=== PATIENT | female | born 1980 | race Two or more races ===

== ENCOUNTER 2016-11-17 14:02 | Emergency (ER) | payer OTHER ==
[2016-11-17 14:11] VITALS: BP 109/69; PULSE 84; TEMP 98.7; BMI 22.6
--- NOTE | 2016-11-17 15:12 | PDOC ---
History of Present Illness - General History Source: Patient Exam Limitations: No Limitations - History of Present Illness Initial Comments: 11/17/16 18:47 Patient is a 36 year old female with a significant past medical history of kidney stones, ovarian cyst and anemia who presents to the ED with abnormal lab findings sent by PCP. Patient has blood work yesterday that revealed Hgb 5.9 and Hct 21.4 and patient was contacted to present to the ED. Patient states that she has had vaginal bleeding for 20 days and was evaluated by SPECIAL NEEDS TEACHER Dr. Mott for the first time 3 weeks ago and had a biopsy done. Patient had a follow up appointment this Tuesday with Dr. Mott and reports negative biopsy result. Patient was supposed to have a US this Tuesday, but did not make it to her appointment. She states that she was bleeding through 6-7 pads, patient states that her last episode of bleeding was on Tuesday and was not a lot of blood as before. Currently no bleeding or abd pain. She reports fatigue and SOB while walking up the stairs. Patient reports regular periods normally and this is the first time she is experiencing the following symptoms. She states that she does not want a blood transfusion and has not had one in the past. Patient has a sx scheduled for 2016 but is unsure of the name of the surgery. She denies any cp, abdominal pain, cramping, diarrhea, ightheadedness or palpitations. Patient denies any dysuria. She denies any control use. PCP - Dr. Kev Eddy brake repairer hydraulic - Dr. Mott <Zonia Her - Last Filed: 11/17/16 18:47> <Lino Parisi - Last Filed: 11/19/16 16:13> - General Chief Complaint: Lightheaded Stated Complaint: Revisit, Lab Variance Time Seen by Provider: 11/17/16 14:33 Past History <Zonia Her - Last Filed: 11/17/16 18:47> - Past Medical History Anemia: Yes - Psycho/Social/Smoking Cessation Hx Anxiety: No Suicidal Ideation: No Smoking History: Never smoked Have you smoked in the past 12 months: No Hx Alcohol Use: No Drug/Substance Use Hx: No Substance Use Type: None <Lino Parisi - Last Filed: 11/19/16 16:13> - Past Medical History Allergies/Adverse Reactions: Allergies Allergy/AdvReac Type Severity Reaction Status Date / Time No Known Allergies Allergy Verified 11/17/16 14:10 Home Medications: Ambulatory Orders Ferrous Sulfate 325 mg PO BID #30 tablet 11/17/16 NK [No Known Home Medication] 11/17/16 Review of Systems - Review of Systems Able to Perform ROS?: Yes Comments:: 11/17/16 18:47 CONSTITUTIONAL: Reported: fatigue No reported: Fever, Chills, Diaphoresis, Generalized Weakness, Malaise, Loss of Appetite HEENT: No reported: Rhinorrhea, Nasal Congestion, Throat Pain, Throat Swelling, Difficulty Swallowing, Mouth Swelling, Ear Pain, Eye Pain, Visual Changes CARDIOVASCULAR: No reported: Chest Pain, Syncope, Palpitations, Irregular Heart Rate, Lightheadedness, Peripheral Edema RESPIRATORY: No reported: Cough, Shortness of Breath, SOB with Exertion, Orthopnea, Wheezing , Stridor, Hemoptysis GASTROINTESTINAL: No reported: Abdominal pain, Abdominal Distension, Nausea, Vomiting, Diarrhea, Constipation, Melena, Hematochezia GENITOURINARY: Reported; vaginal bleeding No reported: Dysuria, Frequency, Urgency, Hesitancy, Flank Pain, Genital Pain MUSCULOSKELETAL: No reported: Myalgia, Arthralgia, Joint Swelling, Back pain, Neck Pain SKIN: No reported: Rash, Itching, Pallor HEMEATOLOGIC/IMMUNOLOGIC: No reported: Easy Bleeding, Easy Bruising, Lymphadenopathy, Frequent infections ENDOCRINE: No reported: Unexplained Weight Gain, Unexplained Weight Loss, Heat Intolerance , Cold Intolerance NEUROLOGIC: No reported: Headache, Focal Weakness, Paresthesias, Vertigo, Lightheadedness, Unsteady Gait, Seizure, Mental Status Changes, Incontinence PSYCHIATRIC: No reported: Anxiety, Depression <Zonia Her - Last Filed: 11/17/16 18:47> *Physical Exam - Vital Signs Last Vital Signs Temp Pulse Resp BP Pulse Ox 98.7 F 84 18 109/69 100 11/17/16 14:04 11/17/16 14:04 11/17/16 14:04 11/17/16 14:04 11/17/16 14:04 - Physical Exam Comments: 11/17/16 18:47 GENERAL: The patient is awake, alert, and fully oriented, Nontoxic - in no acute distress. HEAD: Normocephalic, atraumatic. EYES:(+) pale conjunctiva. extraocular movements intact, sclera anicteric. ENT: Normal voice, Moist mucous membranes. NECK: Normal range of motion, supple LUNGS: Breath sounds equal, clear to auscultation bilaterally. No wheezes, no rhonchi, no rales. HEART: Regular rate and rhythm, without murmur, rub or gallop. ABDOMEN: Soft, nontender, normoactive bowel sounds. No guarding, no rebound.No CVA tenderness EXTREMITIES: Normal range of motion, no edema. No clubbing or cyanosis. No cords , erythema, or tenderness. NEUROLOGICAL: No facial assymetry, Normal speech, PSYCH: Normal mood, normal affect. SKIN: Warm, Dry, normal turgor, <Zonia Her - Last Filed: 11/17/16 18:47> - Vital Signs Last Vital Signs Temp Pulse Resp BP Pulse Ox 98.7 F 84 18 109/69 100 11/17/16 14:04 11/17/16 14:04 11/17/16 14:04 11/17/16 14:04 11/17/16 14:04 <Lino Parisi - Last Filed: 11/19/16 16:13> ED Treatment Course - LABORATORY CBC & Chemistry Diagram: 11/17/16 15:00 11/17/16 15:00 - ADDITIONAL ORDERS Additional order review: Laboratory Results 11/17/16 11/17/16 11/17/16 15:00 15:00 15:00 INR 1.05 Sodium 140 Potassium 4.2 Chloride 105 Carbon Dioxide 28 Anion Gap 7 L BUN 7 D Creatinine 0.6 Creat Clearance w eGFR > 60 Random Glucose 83 Calcium 8.6 Total Bilirubin 0.4 AST 16 D ALT 12 D Alkaline Phosphatase 38 L Total Protein 7.7 Albumin 3.9 Blood Type O POSITIVE Antibody Screen Negative 11/17/16 15:00 RBC 3.18 L D MCV 66.0 L D MCHC 29.4 L RDW 23.4 H D MPV 9.3 D Neutrophils % 59.5 Lymphocytes % 24.8 Monocytes % 7.1 Eosinophils % 6.6 H Basophils % 2.0 <Zonia Her - Last Filed: 11/17/16 18:47> - LABORATORY CBC & Chemistry Diagram: 11/17/16 15:00 11/17/16 15:00 <Lino Parisi - Last Filed: 11/19/16 16:13> Medical Decision Making - Medical Decision Making 11/17/16 15:23 36y F no pmhx presents with anemia - the pt has been having increased vag bleeding this past month, was evaluted by tanker service attendant (Dr. Mott) s/p biopsy 3 weeks ago with 'normal results' per pt. SHe is no longer bleeding, but was sent to the ED due to a HGB of 5.9 as an outpaitnet. the pt messi any pain, but does endorse some exertional dyspnea when going up stairs. Pt has pale conjunctiva but otherwise unremakble exam will repeat labs will obtain pelvic US will d/w Glaucoma Specialist pt declines blood transfusion 11/17/16 19:24 labs reviewed anemia noted to 6.2 pt refuses tarnsfusion, woul dprefer something less invasive agree as pt is only slightly symptmoatic, has few comorbidities. I feel that iron supplementation is a reasonable approach as she is no longer actively bleeding and has outpatient follow up for definitive management of her source of bleeding/anemia. will give pt PO iron awaiting US results Case dw dr. Mott. agree with iron will fu with patient as outpatient 11/17/16 20:17 US noted for fibroid uterus will dc th pt with outpatient management and PO iron return precautiosn ewre discussed I discussed the physical exam findings, ancillary test results and final diagnoses with the patient. I answered all of the patient's questions. The patient was satisfied with the care received and felt comfortable with the discharge plan and treatment plan. The patient will call their primary care physician within 24 hours to arrange follow-up and will return to the Emergency Department with any new, persistent or worsening symptoms. <Lino Parisi - Last Filed: 11/19/16 16:13> *DC/Admit/Observation/Transfer - Attestations Scribe Attestion: 11/17/16 18:47 Documentation prepared by CECY Khalil, acting as medical sales for Lino Parisi MD. <Zonia Her - Last Filed: 11/17/16 18:47> - Discharge Dispostion Admit: No <Lino Parisi - Last Filed: 11/19/16 16:13> Diagnosis at time of Disposition: Dysfunctional uterine bleeding Anemia Qualifiers: Anemia type: unspecified type Qualified Code(s): D64.9 - Anemia, unspecified - Discharge Dispostion Disposition: HOME Condition at time of disposition: Improved - Prescriptions Prescriptions: Ferrous Sulfate 325 mg PO BID #30 tablet - Referrals Referrals: Kev Eddy PA [Primary Care Provider] - Melissa Mott MD [Staff Physician] - - Patient Instructions Printed Discharge Instructions: DI for Vaginal Bleeding Additional Instructions: Vuelva al departamento de urgencias de inmediato con cualquier nuevo, persistente o empeorando los sntomas incluyendo falta de aliento, dolor en el pecho, mareos, vmitos, dolor abdominal, sangrado vaginal darrell u otras preocupaciones. [facility] el michael segn lo prescrito. DEBE llamar y hacer el seguimiento con el Dr. Mott o con lund mdico de atencin primaria dentro de los 3 a 4 mcclellan para jacklyn evaluacin ms detallada de missy sntomas. Los resultados fueron discutidos con usted. Por favor, asegrese de que lund mdico revise los resultados de lund evaluacin de emergencia. Return to the emergency department immediately with ANY new, persistent or worsening symptoms including shortness of breath, chest pain, dizziness, vomiting, abdominal pain, severe vaginal bleeding or other concerns. Take the iron as prescribed. You MUST call and follow up with Dr. Mott or your primary care doctor within 3-4 days for further evaluation of your symptoms. Results were discussed with you. Please make sure your doctor reviews the results of your emergency evaluation. Print Language: GUYANESE
[2016-11-17 15:57] LABS: EOSINOPHIL 6.6 % (0-4.5); MCHC 29.4 g/dl (32.0-36.0); MEAN PLT VOLUME 9.3 fl (7.5-11.1); NEUTROPHILS 59.5 % (42.8-82.8); PLATELET COUNT 323 K/MM3 (134-434); RDW 23.4 % (11.6-15.6); WHITE BLOOD COUNT 7.5 K/mm3 (4.0-10.0)
[2016-11-17 16:21] LABS: ALBUMIN 3.9 g/dl (3.4-5.0); ANION GAP 7 (8-16); CALCIUM 8.6 mg/dL (8.5-10.1); CO2 28 mmol/L (21-32); CREATININE 0.6 mg/dL (0.55-1.02); GLUCOSE,RANDOM 83 mg/dL (74-106); SGOT/AST 16 U/L (15-37); SGPT/ALT 12 U/L (12-78)
[2016-11-17 16:22] LABS: ALK PHOS 38 U/L (45-117); BILIRUBIN,TOTAL 0.4 mg/dL (0.2-1.0); TOT PROT 7.7 g/dl (6.4-8.2)
[2016-11-17 16:24] LABS: INR 1.05 (0.82-1.09); PROTHROMBIN TIME (PATIENT) 11.6 SEC (9.98-11.88)
[2016-11-17 16:44] LABS: MCH 19.4 pg (25.7-33.7)
[2016-11-17 18:13] LABS: ANISOCYTOSIS 3+; HYPOCHROMIA 3+; MICROCYTOSIS 1+; OVALOCYTE 1+; PLATELET ESTIMATE ADEQUATE (NORMAL); SCHISTOCYTES 2+
[2016-11-17] MEDS ORDERED: FERROUS SO4 325 MG TABLET (FP) PO ONE (19:35)
[2016-11-17] MEDS ORDERED: FERROUS SO4 325 MG TABLET (FP) ONE (20:25)
--- NOTE | 2016-11-21 21:51 | EKG ---
Test Reason : Blood Pressure : / mmHG Vent. Rate : 069 BPM Atrial Rate : 069 BPM P-R Int : 134 ms QRS Dur : 086 ms QT Int : 372 ms P-R-T Axes : -10 076 046 degrees QTc Int : 398 ms NORMAL SINUS RHYTHM NONSPECIFIC ST ABNORMALITY NO PREVIOUS ECGS AVAILABLE Confirmed by SONIYA SABILLON MD ([id number]) on 11/21/2016 9:51:19 PM Referred By: Confirmed By:SONIYA SABILLON MD
== END 2016-11-17 21:44 | disposition home or self-care (01) ==
LOC: JER 14:02
DX: N93.8 Other specified abnormal uterine and vaginal bleeding (principal); D25.9 Leiomyoma of uterus, unspecified
CPT/HCPCS: 76830-TC; 80053; 85025; 85610; 86850; 86900; 86901; 93005; 93010; 99283-25

== ENCOUNTER 2019-10-12 20:07 | Emergency (ER) | payer OTHER ==
[2019-10-12 20:21] VITALS: BP 136/85; PULSE 116; TEMP 98.9; BMI 24.3
--- NOTE | 2019-10-12 20:25 | PDOC ---
History of Present Illness - General Chief Complaint: Sore Throat Stated Complaint: FEVER/HEADACHE Time Seen by Provider: 10/12/19 20:17 History Source: Patient Exam Limitations: No Limitations - History of Present Illness Initial Comments: 10/12/19 20:21 HISTORY OF PRESENT ILLNESS: 39-year-old woman presents emergency department for evaluation of sore throat over the past 2 days. Patient denies any fevers, voice changes, difficulty swallowing. No recent travel or sick contacts. PAST MEDICAL HISTORY: Denies past medical history SURGICAL HISTORY: Denies ALLERGIES: No known drug allergies REVIEW OF SYSTEMS General/Constitutional: Denies fever or chills. Denies weakness, weight change. HEENT: See HPI Cardiovascular: Denies chest pain or shortness of breath. Respiratory: Denies cough, wheezing, or hemoptysis. Gastrointestinal: Denies nausea, vomiting, diarrhea or constipation. Denies rectal bleeding. Genitourinary: Denies dysuria, frequency, or change in urination. Musculoskeletal: Denies joint or muscle swelling or pain. Denies neck or back pain. Skin and breasts: Denies rash or easy bruising. Neurologic: Denies headache, vertigo, loss of consciousness, or loss of sensation. Psychiatric: Denies depression or anxiety. Endocrine: Denies increased thirst. Denies abnormal weight change. Hematologic/Lymphatic: Denies anemia, easy bleeding, or history of blood clots. Allergic/Immunologic: Denies hives or skin allergy. Denies latex allergy. PHYSICAL EXAM General Appearance: Well-appearing, appropriately dressed. No apparent distress, no intoxication. HEENT: EOMI, PERRLA, normal ENT inspection, normal voice, TMs normal. No conjunctival pallor. No photophobia, scleral icterus. Oropharynx mildly erythematous with exudate present to bilateral tonsils. Uvula is midline. No evidence of peritonsillar abscess present. Neck: Supple. Trachea midline. No tenderness, rigidity, carotid bruit, stridor or thyromegaly. Tender anterior cervical lymphadenopathy is present. Respiratory/Chest: Lungs CTAB. No shortness of breath, chest tenderness, respiratory distress, accessory muscle use. No crackles, rales, rhonchi, stridor, wheezing, dullness Neurologic: health outreach worker II-XII intact. Fully oriented, alert. Appropriate mood/affect. Motor strength 5/5. No appreciable EOM palsy, facial droop or sensory deficit. Past History - Medical History Allergies/Adverse Reactions: Allergies Allergy/AdvReac Type Severity Reaction Status Date / Time No Known Allergies Allergy Verified 10/12/19 20:21 Home Medications: Ambulatory Orders Ferrous Sulfate 325 mg PO BID #30 tablet 11/17/16 Amoxicillin - [Amoxicillin 500mg Capsule -] 500 mg PO BID #20 capsule 10/12/19 Anemia: Yes - Psycho-Social/Smoking History Smoking History: Never smoked Have you smoked in the past 12 months: No Medical Decision Making - Medical Decision Making 10/12/19 20:22 A/P: 39-year-old woman with sore throat over 2 days Exudate present to bilateral tonsils worse on the right compared to the left. Oropharyngeal erythema is noted. Uvula is midline No evidence of peritonsillar abscess present. No vocal hoarseness Patient is able to tolerate her own secretions. Discharge home with prescription for amoxicillin given high suspicion of streptococcal infection. I discussed the physical exam findings, ancillary test results and final diag noses with the patient. I answered all of the patient's questions. The patient was satisfied with the care received and felt comfortable with the discharge plan and treatment plan. The patient will call their primary care physician within 24 hours to arrange follow-up and will return to the Emergency Department with any new, persistent or worsening symptoms. Portions of this note have been documented using voice recognition software. As a result, errors may occur in the install technician process. Effort has been made to correct all grammatical and install technician error, but some may have been missed which may produce sporadic inaccurate install technician or nonsensical phrases. Discharge - Discharge Information Problems reviewed: Yes Clinical Impression/Diagnosis: Pharyngitis Qualifiers: Pharyngitis/tonsillitis etiology: unspecified etiology Qualified Code(s): J02.9 - Acute pharyngitis, unspecified Condition: Stable Disposition: HOME - Admission No - Additional Discharge Information Prescriptions: Amoxicillin - [Amoxicillin 500mg Capsule -] 500 mg PO BID #20 capsule - Follow up/Referral Referrals: Emmanuel Delcid MD [Primary Care Provider] - - Patient Discharge Instructions Additional Instructions: Take amoxicillin as prescribed. Salt water gargles. Throw away your toothbrush in 3 days and start using a new toothbrush. No sharing of drinks, utensils or toothbrushes. Take Motrin as directed by seaming inspector's instructions. Return to ED for worsening fevers, worsening sore throat, chest pain, shortness of breath or any other concerns. - Post Discharge Activity Work/Back to School Note: Back to Work
== END 2019-10-12 20:41 | disposition home or self-care (01) ==
LOC: JERFT 20:07
DX: J02.9 Acute pharyngitis, unspecified (principal)
CPT/HCPCS: 99283-25; U0003